=== PATIENT | female | born 1970 | race Caucasian/White ===

== ENCOUNTER 2022-11-30 16:19 | Emergency (ER) | payer OTHER ==
[~2022-11-30] VITALS: Ht 157.5 cm; Wt 58.1 kg
[~2022-11-30 16:19] MED LIST: PRISTIQ ER50 MG PO
== END 2022-11-30 21:27 | disposition home or self-care (01) ==
LOC: ER 16:19
DX: G43.909 Migraine, unspecified, not intractable, without status migrainosus (principal)

== ENCOUNTER 2023-02-16 20:25 | Emergency (ER) | payer OTHER ==
[~2023-02-16] VITALS: Ht 157.5 cm; Wt 58.1 kg
== END 2023-02-17 01:23 | disposition home or self-care (01) ==
LOC: ER 20:25
PROVIDERS: General Practice
DX: R10.2 Pelvic and perineal pain (principal)

== ENCOUNTER 2023-10-03 08:08 | Emergency (ER) | payer OTHER ==
[~2023-10-03] VITALS: Ht 157.5 cm; Wt 56.7 kg
[2023-10-03] MEDS ORDERED: CLONAZEPAM0.25 MG PO (08:30)
== END 2023-10-03 09:55 | disposition home or self-care (01) ==
LOC: ER 08:08
DX: R00.2 Palpitations (principal); F41.9 Anxiety disorder, unspecified

== ENCOUNTER → 2024-10-18 | Emergency (ER) | payer OTHER ==
[~2024-10-18] VITALS: Ht 157.5 cm; Wt 56.7 kg
[~2024-10-18] MED LIST changes: +CLONAZEPAM0.25 MG PO; +EFFEXOR XR37.5 MG; +LIPITOR20 MG
[2024-10-18 13:59] LABS: HEMATOCRIT 41.9 % (36.0-45.00); MEAN CELL VOLUME 97.9 fL (80.00-100.00); MEAN CORPUSCULAR HEMOGLOBIN 32.6 pg (27.00-32.0); MEAN CORPUSCULAR HGB CONC 33.3 g/dl (32.0-36.0); PLATELET COUNT 302 K/uL (150-450); RED BLOOD COUNT 4.28 M/uL (4.00-6.00); RED CELL DISTRIBUTION WIDTH 13.2 % (11.5-14.5)
[2024-10-18 15:17] LABS: CALCIUM 9.3 mg/dL (8.5-10.1); CREATININE SERUM 0.62 mg/dL (0.55-1.02); GFR 100.31; POTASSIUM 4.59 mEq/L (3.5-5.1)
== END | disposition left against medical advice (07) ==
LOC: ER 11:15
PROVIDERS: General Practice
DX: R00.2 Palpitations (principal); F41.9 Anxiety disorder, unspecified

== ENCOUNTER 2024-10-28 12:55 | Emergency (ER) | payer OTHER ==
[~2024-10-28] VITALS: Ht 157.5 cm; Wt 56.7 kg
[2024-10-28] MEDS ORDERED: ONDANSETRON HCL 2 MG/ML VIAL ONE (14:44)
[2024-10-28] MEDS ORDERED: ACETAMINOPHEN 500 MG GEL..CAP PO ONE (14:45)
[2024-10-28] MEDS ORDERED: FAMOTIDINE/PF 20 MG/2 ML VIAL ONE (14:45)
[2024-10-28] MEDS ORDERED: FAMOTIDINE/PF 20 MG/2 ML VIAL IV ONE (14:45)
[2024-10-28] MEDS ORDERED: ONDANSETRON HCL 2 MG/ML VIAL IV ONE (14:45)
[2024-10-28 16:19] LABS: COVID-19 AG NEGATIVE (NEGATIVE)
[2024-10-28] MEDS ORDERED: ONDANSETRON ODT4 MG PO (16:29)
[2024-10-28] MEDS ORDERED: PEPCID AC20 MG PO (16:29)
== END 2024-10-28 16:54 | disposition home or self-care (01) ==
LOC: ER 12:56
PROVIDERS: General Practice
DX: B34.9 Viral infection, unspecified (principal); Z20.822 Contact with and (suspected) exposure to COVID-19